=== PATIENT | female | born 1990 | race Hispanic/Latino ===

== ENCOUNTER 2024-01-28 22:24 | Emergency (ER) | payer SELFPAY ==
[2024-01-28 23:32] LABS: Absolute Eosinophils 0.3 K/uL (0-0.5); Absolute Lymphocytes (CBC) 1.8 K/uL (0.7-4.9); Absolute Monocytes 0.7 K/uL (0.1-1.3); Absolute Neutrophil 9.8 K/uL (1.8-8.0); Barbiturates NEGATIVE (NEGATIVE); Basophils % 0.2 % (0-1.3); Benzodiazepines NEGATIVE (NEGATIVE); Cocaine NEGATIVE (NEGATIVE); Eosinophils % 2.2 % (0-4.4); Hematocrit 41.6 % (36.0-45.0); Hemoglobin 13.8 g/dL (12.0-15.0); Lymphocytes % 14.1 % (15.3-44.8); MCH 29.6 pg (27.0-35.0); MCHC 33.3 g/dL (32.0-36.0); METHAMPHETAM NEGATIVE (NEGATIVE); MPV 8.7 fL (7.6-11.3); Methadone NEGATIVE (NEGATIVE); Monocytes % 5.6 % (3.3-12.3); Neutrophils % 77.9 % (41.7-73.7); Opiates NEGATIVE (NEGATIVE); Phencyclidine NEGATIVE (NEGATIVE); Platelets 299 thou/uL (152-406); RBC Red Blood Cell Count 4.67 M/uL (3.86-4.86); Red Cell Distribution Width 13.1 % (12.1-15.2); THC Cannibis NEGATIVE (NEGATIVE)
[2024-01-28 23:35] LABS: PT Prothrombin Time 11.9 SECONDS (9.4-12.5); PTT, Activated Partial Thromb 31.5 SECONDS (24.3-36.9); Protime INR 1.06
[2024-01-28 23:41] LABS: ALT/SGPT 26 U/L (13-56); AST/SGOT 11 U/L (15-37); Albumin 3.6 g/dL (3.4-5.0); Alkaline Phosphatase 108 U/L (45-117); Anion Gap 7.4 mEq/L (5.0-15.0); BUN Blood Urea Nitrogen 12 mg/dL (7-18); Bicarbonate 26 mEq/L (21-32); Bilirubin Direct 0.2 mg/dL (0-0.2); Bilirubin Indirect, Calculated 0.2 mg/dL (0.2-0.8); Bilirubin Total 0.4 mg/dL (0.2-1.0); Globulin 3.7 g/dL (2.3-3.5); Glomerular Filtration Rate 95 ml/min (=/>90); Glucose Level 150 mg/dL (74-106); Potassium 3.4 mEq/L (3.5-5.1); Protein, Total 7.3 g/dL (6.4-8.2); Sodium Level 139 mEq/L (136-145)
--- NOTE | 2024-01-29 00:48 | ER ---
Nurse's Notes [facility] Name: Lucia Saxena Age: 33 yrs Sex: Female : 1990 Arrival Date: 01/28/2024 Time: 22:24 Bed 17 Private MD: Diagnosis: Suicidal ideations Presentation: 01/27 22:28 Chief complaint: EMS states: patient attempted suicide by tightening a belt around her tm6 neck for about 30 seconds. Has been on lexapro for post depression, but has been of the medication for an unknown amount of time. Patient was arguing with during the day, and became concerned for his 's well-being. called neighbor and asked neighbor to call EMS. Coronavirus screen: Vaccine status: Patient reports receiving the 2nd dose of the covid vaccine. 22:28 Method Of Arrival: EMS: [facility] tm6 22:28 Ebola Screen: Patient negative for fever greater than or equal to 101.5 degrees tm6 Fahrenheit, and additional compatible Ebola Virus Disease symptoms Patient denies exposure to infectious person. Patient denies travel to an Ebola-affected area in the 21 days before illness onset. No symptoms or risks identified at this time. Initial Sepsis Screen: Does the patient meet any 2 criteria? No. Patient's initial sepsis screen is negative. Does the patient have a suspected source of infection? No. Patient's initial sepsis screen is negative. Risk Assessment: Do you want to hurt yourself or someone else? Patient reports desire/thoughts of hurting themselves or someone else. Provider notified. Onset of symptoms was January 28, 2024. 22:28 Acuity: SOLANGE 2 tm6 Triage Assessment: 22:28 General: Appears distressed, Behavior is cooperative, anxious, crying. Pain: Complains tm6 of pain in neck Pain does not radiate. Pain currently is 2 out of 10 on a pain scale. EENT: Reports pain in throat/neck Pain is 2 out of 10 on a pain scale. Neuro: Level of Consciousness is awake, alert, obeys commands, Oriented to person, place, time, situation. Cardiovascular: No deficits noted. Patient's skin is warm and dry. Rhythm is regular. Respiratory: Airway is patent Respiratory effort is even, unlabored, Respiratory pattern is regular, symmetrical. GI: No signs and/or symptoms were reported involving the gastrointestinal system. Abdomen is flat, non-distended. : No signs and/or symptoms were reported regarding the genitourinary system. Derm: No signs and/or symptoms reported regarding the dermatologic system. Musculoskeletal: No signs and/or symptoms reported regarding the musculoskeletal system. Historical: - Allergies: 23:51 No Known Allergies; tm6 - PMHx: 23:51 depression; tm6 - PSHx: 23:51 section; Cholecystectomy; tm6 - Immunization history:: Client reports receiving the 2nd dose of the Covid vaccine. - Infectious Disease History:: Denies. - Social history:: Smoking status: Patient denies any tobacco usage or history of. Patient/guardian denies using alcohol. Screenin:28 [facility] Fall Risk Assessment (Adult) History of falling in the last 3 months, tm6 including since admission No falls in past 3 months (0 pts) Confusion or Disorientation No (0 pts) Intoxicated or Sedated No (0 pts) Impaired Gait No (0 pts) Mobility Assist Device Used No (0 pt) Altered Elimination No (0 pt) Score/Fall Risk Level 0 - 2 = Low Risk Oriented to surroundings, Maintained a safe environment, Educated pt \\T\\ family on fall prevention, incl call for assistance when getting out of bed. Abuse screen: Denies threats or abuse. Denies injuries from another. Nutritional screening: No deficits noted. Tuberculosis screening: No symptoms or risk factors identified. Assessment: 22:28 Reassessment: see triage assessment. tm6 23:30 Reassessment: patient provided snack and drink. Patient tearful. tm6 08/18 00:00 Reassessment: patient speaking with on phone at nurses' station. tm6 01:00 Reassessment: patient talking with on phone at nurses' station. tm6 01:15 Pain: Complains of pain in left arm Pain currently is 4 out of 10 on a pain scale. tm6 Quality of pain is described as aching. 02:02 Reassessment: patient lying in bed, has eyes closed. tm6 03:57 Reassessment: [facility] at bedside. tm6 05:57 Reassessment: nurse to nurse given to Rosario Strickland. tm6 06:19 Reassessment: patient states she is very tired and was not able to sleep much here, nor tm6 the last several days. Patient asked RN to update on her acceptance at [facility]. RN called Jordin to let him know his will be going to [facility] in [place]. Address and phone number provided to . 06:20 Reassessment: Jordin (): [phone]. tm6 06:31 Reassessment:. tm6 07:03 Reassessment: patient states left arm feels better. tm6 07:12 Reassessment: report given to EMS. tm6 07:15 Reassessment: notified of EMS arrival to take to [place]. tm6 Psych: 01/27 22:28 [place] Suicide Severity Screening: In the past month, have you wished you were tm6 or wished you could go to sleep and not wake up? Patient responds "yes." Based off the client's responses additional C-SSRS screening is required. "In the past month, have you actually had any thoughts of killing yourself?" Patient responds "yes." Based off the client's response additional [place] suicide severity screening questions to be further documented on paper forms. "In your lifetime, have you ever done anything, started to do anything, or prepared to do anything to end your life?" Patient responds "yes." Patient reports suicidal intent within 3 past months. Subjective: Patient's mood is sad, hopeless, Delusions are denied, Hallucinations are denied Having thoughts of suicide. Plan for suicide is hanging, slit wrists. Objective: Patient is cooperative, Speech is normal, Affect is blunted. Interventions: Removed personal items and placed in bag. Patient placed in hospital gown. Searched person for dangerous items. Urine collected and sent for urine drug test. Belonging list filled out. Safety Checks: Personal items have been removed. Door is open. No visitors are present at this time. Pt denies substance abuse. 22:28 Commitment: Patient will be an involuntary commitment. Commitment papers completed. tm6 Vital Signs: 22:28 BP 135 / 80; Pulse 96; Resp 20; Temp 98.6(O); Pulse Ox 96% on R/A; Weight 81.65 kg; tm6 Height 5 ft. 5 in. ; Pain 0/10; 01/28 07:02 BP 104 / 53; Pulse 88; Resp 19; Temp 97.4(TE); Pulse Ox 97% on R/A; MAP 65 mmHg; Pain tm6 0/10; 01/27 22:28 Body Mass Index 29.95 (81.65 kg, 165.1 cm) tm6 01/27 22:28 Pain Scale: Adult tm6 01/28 07:02 Pain Scale: Adult tm6 ED Course: 01/27 22:25 Patient arrived in ED. jj6 22:28 Jimmie Rivero MD is Attending Physician. ec2 22:28 Arm band placed on right wrist. tm6 22:28 Patient has correct armband on for positive identification. Bed in low position. Side tm6 rails up X 1. SI precautions. Room cleared, patient placed in paper scrubs, belongings collected. Provided Education on: plan of care. Noise minimized. Lights dimmed. Warm blanket given. Pillow given. 22:30 Wes Eid PA is PHCP. cp 23:10 EKG done, by ED staff, reviewed by Wes CORTEZ. oe 23:15 Inserted saline lock: 20 gauge in right antecubital area, using aseptic technique. oe Blood collected. Flushed with 10 mL NS. 23:36 Jo Adams, ANISA is Primary Nurse. tm6 23:51 Triage completed. tm6 01/28 01:01 Spoke with Vicky at [facility] \\T\\[id number]. Screener to call back. af3 01:18 Screener at [facility] Mary Lou called, stated she is on another call, and will not be af3 here for several hours. 03:51 rogelio Barreto from [facility] in room with pt. af3 05:55 connected Leanna Siddiqui from [facility] with Jo Siddiqui for Nurse to Nurse. eb 05:58 Administrative approval given by Leanna CASTILLO Rn / patient has been accepted to [facility]/ Dr. Kitty Curtis has accepted the patient in transfer without consultation with Dr. Rivero. 06:25 called [facility] for transport/ per postal supervisor they are unavailable until after eb 8am. 06:32 Warm blanket given. PO fluids given. tm6 06:32 IV discontinued, intact, bleeding controlled, No redness/swelling at site. Pressure tm6 dressing applied. 07:12 No provider procedures requiring assistance completed. tm6 Administered Medications: 01:15 Drug: Potassium PO Effervescent Tablet 25 mEq PO once; dissolve in 4 ounces of water or tm6 juice Route: PO; 02:02 Follow up: Response: No adverse reaction tm6 01:15 Drug: LORazepam PO 1 mg PO once Route: PO; tm6 02:02 Follow up: Response: No adverse reaction tm6 01:15 Drug: Lidoderm Topical Patch 5 % (700 mg/patch) 1 patches Topical once; leave on for 12 tm6 hours; cover most painful area; may cut into smaller pieces Route: Topical; Site: left forearm; 02:02 Follow up: Response: No adverse reaction; Pain is decreased tm6 Medication: 01/27 22:28 VIS not applicable for this client. tm6 Outcome: 01/28 00:48 ER care complete, transfer ordered by . linh 07:12 Transferred by ground EMS to other acute care facility: [facility]. tm6 07:12 Condition: stable 07:12 Instructed on the need for transfer, 07:13 Patient left the ED. tm6 Signatures: Wes Eid PA PA cp Espinosa, [place] oe Botello, Elizabeth eb Jeffries, Jennifer jj6 Jimmie Rivero MD MD ec2 Jo Adams RN RN tm6 Shanta Che
--- NOTE | 2024-01-29 00:48 | EDPHYS ---
Physician Documentation [facility] Name: Lucia Saxena Age: 33 yrs Sex: Female : 1990 Arrival Date: 01/28/2024 Time: 22:24 Bed 17 Private MD: ED Physician Jimmie Rivero HPI: 01/27 22:30 This 33 yrs old Female presents to ER via Unassigned with complaints of Suicidal cp Ideation, SUICIDE ATTEMPT. 22:30 The patient presents to the emergency department with a history of a suicide gesture, cp wrapped belt around neck in attempt to strangle herself. Onset: The symptoms/episode began/occurred today. 22:30 Past psychiatric history: post depression. cp Historical: - Allergies: 23:51 No Known Allergies; tm6 - PMHx: 23:51 depression; tm6 - PSHx: 23:51 section; Cholecystectomy; tm6 - Immunization history:: Client reports receiving the 2nd dose of the Covid vaccine. - Infectious Disease History:: Denies. - Social history:: Smoking status: Patient denies any tobacco usage or history of. Patient/guardian denies using alcohol. ROS: 22:35 Constitutional: Negative for fever, cp 22:35 Constitutional: HX per HPI cp 22:35 Cardiovascular: Negative for chest pain, 22:35 Abdomen/GI: Negative for abdominal pain, vomiting, diarrhea, constipation, 22:35 Psych: Positive for depression, suicide gesture, Negative for auditory hallucinations, visual hallucinations, 22:35 All other systems are negative, Exam: 22:40 Constitutional: The patient appears in no acute distress, alert, awake, cp non-diaphoretic, non-toxic, well developed, well nourished, 22:40 Head/Face: Normocephalic, atraumatic. cp 22:40 Eyes: Periorbital structures: appear normal, Conjunctiva: normal, no exudate, no injection, Sclera: no appreciated abnormality, Lids and lashes: appear normal, bilaterally, 22:40 ENT: External ear(s): are unremarkable, Nose: is normal, Mouth: Lips: moist, Oral mucosa: moist, Posterior pharynx: Airway: no evidence of obstruction, patent, 22:40 Neck: External neck: is normal, ROM/movement: is normal, is supple, without pain, no range of motions limitations, 22:40 Chest/axilla: Inspection: normal, 22:40 Cardiovascular: Rate: normal, Rhythm: regular, 22:40 Respiratory: the patient does not display signs of respiratory distress, Respirations: normal, no use of accessory muscles, no retractions, labored breathing, is not present, Breath sounds: are clear throughout, no decreased breath sounds, no stridor, no wheezing, 22:40 Abdomen/GI: Inspection: abdomen appears normal, 22:40 Neuro: Orientation: to person, place \T\ time. Mentation: is normal, 22:40 Psych: Behavior/mood is cooperative, Judgement / Insight is normal. 23:14 ECG was reviewed by the Attending Physician. Vital Signs: 22:28 BP 135 / 80; Pulse 96; Resp 20; Temp 98.6(O); Pulse Ox 96% on R/A; Weight 81.65 kg; tm6 Height 5 ft. 5 in. ; Pain 0/10; 01/28 07:02 BP 104 / 53; Pulse 88; Resp 19; Temp 97.4(TE); Pulse Ox 97% on R/A; MAP 65 mmHg; Pain tm6 0/10; 01/27 22:28 Body Mass Index 29.95 (81.65 kg, 165.1 cm) [facility] 01/27 22:28 Pain Scale: Adult 6 01/28 07:02 Pain Scale: Adult tm6 MDM: 01/27 22:28 Patient medically screened. ec2 23:55 Data reviewed: vital signs, nurses notes, lab test result(s), EKG. 01/28 04:27 ED course: [facility] w/ recommendation for inpt. . 2 01/27 22:28 Order name: Acetaminophen; Complete Time: 23:52 2 01/27 22:28 Order name: Basic Metabolic Panel; Complete Time: 23:52 2 01/27 23:52 Interpretation: Normal except: K 3.4; CL 109; GLUC 150. 01/27 22:28 Order name: CBC with Diff; Complete Time: 23:52 2 01/27 22:28 Order name: ETOH Level; Complete Time: 23:52 2 01/27 22:28 Order name: Hepatic Function; Complete Time: 23:52 2 01/27 22:28 Order name: PT-INR; Complete Time: 23:52 ec2 01/27 22:28 Order name: Test, Urine; Complete Time: 23:52 ec2 01/27 22:28 Order name: Ptt, Activated; Complete Time: 23:52 ec2 01/27 22:28 Order name: Salicylate; Complete Time: 23:52 ec2 01/27 22:28 Order name: Urine Drug Screen; Complete Time: 23:52 ec2 01/27 22:28 Order name: EKG; Complete Time: 22:28 ec2 01/27 22:28 Order name: EKG - Nurse/Tech; Complete Time: 23:36 ec2 01/27 22:28 Order name: IV Saline Lock; Complete Time: 23:36 ec2 01/27 22:28 Order name: Labs collected and sent; Complete Time: 23:36 ec2 01/27 22:28 Order name: Suicide Precautions; Complete Time: 23:36 ec2 01/27 22:28 Order name: Suicide Screening ([place]); Complete Time: 23:36 ec2 EC/17 23:14 Rate is 93 beats/min. Rhythm is regular. HI interval is normal. QRS interval is normal. cp QT interval is normal. T waves are Inverted in lead aVR. Interpreted by me. Reviewed by me. Administered Medications: 01/28 01:15 Drug: Potassium PO Effervescent Tablet 25 mEq PO once; dissolve in 4 ounces of water or tm6 juice Route: PO; 02:02 Follow up: Response: No adverse reaction tm6 01:15 Drug: LORazepam PO 1 mg PO once Route: PO; tm6 02:02 Follow up: Response: No adverse reaction tm6 01:15 Drug: Lidoderm Topical Patch 5 % (700 mg/patch) 1 patches Topical once; leave on for 12 tm6 hours; cover most painful area; may cut into smaller pieces Route: Topical; Site: left forearm; 02:02 Follow up: Response: No adverse reaction; Pain is decreased tm6 Disposition Summary: 01/29/24 00:48 Transfer Ordered Notes: Transfer Location: Psych Facility cp Reason: Higher level of care cp Condition: Stable cp Problem: new cp Symptoms: are unchanged cp Accepting Physician: Doctor(01/29/24 07:13) tm6 Diagnosis - Suicidal ideations cp Forms: - Medication Reconciliation Form cp - SBAR form cp Signatures: Dispatcher [employer] Wes Mosley PA PA cp Corral, Edwin, MD MD ec2 Jo Adams RN RN tm6 Corrections: (The following items were deleted from the chart) 01:12 01/27 22:30 The patient presents to the emergency department with a history of a cp suicide gesture, wrapped cord around neck in attempt to strangle herself, cp 01/28 07:13 00:48 Doctor linh tm6
[2024-01-29] MEDS ORDERED: LORAZEPAM 1 MG TABLET ONE (00:53)
[2024-01-29] MEDS ORDERED: POTASSIUM 25 MEQ EFFERV TAB ONE (00:53)
[2024-01-29] MEDS ORDERED: LIDOCAINE 4% PATCH ONE (01:12)
[2024-01-29 07:28] VITALS: BP 104/53; TEMP 97.4; O2SAT 97
== END 2024-01-29 07:13 ==
LOC: ER 22:24
DX: R45.851 Suicidal ideations (principal)
CPT/HCPCS: 36415; 80048; 80076; 80143; 80179; 80307; 81025; 82077; 85025; 85610; 85730; 93005; 99285; J2001